=== PATIENT | male | born 1970 | race Caucasian/White ===

== ENCOUNTER 2025-07-28 14:09 | Outpatient (OUT) | payer BC, SELFPAY ==
--- NOTE | 2025-07-28 | CT_ITS ---
The [address] [address] Patient Name: ANGEL STOKES MRN: [id number] date: 1970 Sex: M Assigned Patient Location: CT Current Patient Location: CT Accession/Order Number: [id number] Exam Date: 07/28/2025 14:30 Report Date: 07/28/2025 20:55 At the request of: POORNIMA QUILES DO, MS Procedure: CT lung screening low-dose CT Chest lung screening without contrast TECHNIQUE: Axial imaging with 2-D reconstruction. The CT exam was performed using one or more the following dose reduction techniques: Automated exposure control, adjustment of the MA and/or Kv according to patient size, or use of the iterative reconstruction technique. History: 33 pack-year history COMPARISON: None THYROID: Unremarkable TRACHEA AND BRONCHI: Patent ESOPHAGUS: Unremarkable. HEART: Within normal limits PERICARDIAL EFFUSION: None CORONARY ARTERY CALCIFICATION: None MEDIASTINUM: No adenopathy. No pneumoperitoneum. No mediastinal hematoma. PULMONARY SOHEILA: No hilar mass or adenopathy is seen. THORACIC AORTA Unremarkable LUNG NODULE 7 mm right major fissure nodule seen with image 141 LUNGS: Mild atelectasis. PLEURAL EFFUSION: None PNEUMOTHORAX: No pneumothorax seen. CHEST WALL: No abnormality AXILLA:Unremarkable BONY STRUCTURES Intact UPPER ABDOMEN: Images of the upper abdomen are noncontributory. CT/CT lung screening low-dose IMPRESSION: 7 mm right major fissural nodule FINAL ASSESSMENT: Benign behavior Lung-RADS Version 1.0 Assessment Category: 2 REMARKS: Continued annual screening with LDCT in 12 months is recommended. Impression dictated by: Kike Hodges M.D. 07/28/2025 8:55 PM Dictation Location: [id number] Electronically authenticated by: [id number] Y Date: 07/28/2025 20:55
--- OUTSIDE RECORDS SUMMARY | 2025-07-28 14:17 | XMS_ITS | Clinical Summary ---
Author Organization [facility] Address [address] [facility] [place] [address] Care Team Providers Care Occupational Health Physician Name Role Phone Unavailable Primary Care Provider Unavailabl e Source Comments The following information is NOT included in Care Everywhere downloads:Psychiatric notes, ECG results, Cardiac Rehab notes, Pulmonary Function notes, data from SmartForms (includes but not limited toPregnancy data,audiograms, eye exams, pre-surgical evaluation notes, well-child exam data).[facility] Medications No known medications Social History Tobacco UseTypesPacks/DayYears UsedDateSmoking Tobacco: Never AssessedSex and Gender InformationValueDate RecordedSex Assigned at BirthNot on fileLegal Sex Male06/06/2012 12:41 PM ESTGender IdentityNot on fileSexual OrientationNot on file Plan of Treatment Health MaintenanceDue DateLast RhdqTlzrwmagCiptjkisujl1970HIV Test 1985Hepatitis C Bzvctjbq96/07/1988Tdap Nsbksoy9007/09/1988Hepatitis A (HAV) Vaccine (optional start 19+ years)1989Hepatitis B (HBV) Vaccine (1 of 3 - 19+ 3-dose series)1989Tetanus (Td or Tdap) Njxmvmb7407/09/1989Cholesterol 2005CRC Rhdnnriwt28/07/2015Cologuard (Stool DNA)2015FIT2015 Pneumococcal Vaccine(s) (50+ yrs) (1 of 1 - PCV)2020Shingles (RZV) Vaccine (1 of 2)2020COVID-19 Vaccine (1 - 2024-26 season)2025Influenza Vaccine (#1)2025 Insurance
--- OUTSIDE RECORDS SUMMARY | 2025-07-28 14:17 | XMS_ITS | Clinical Summary ---
[facility] Address [id number] [address] [place] [address] Care Team Providers Care Pot Filler Name Role Phone Unavailable Primary Care Provider Unavailabl e Social History Tobacco UseTypesPacks/DayYears UsedDateSmoking Tobacco: Never AssessedChildcare AnswerDate NxupfqpwZhajcovvoRzmyhbh64/12/2019EmploymentAnswerDate Recorded JlzdsiormdKmqfemj42/12/2019Sex and Gender InformationValueDate RecordedSex Assigned at BirthNot on fileLegal SwcSnxh6603/08/2015 11:58 AM EDTGender Identity Not on fileSexual OrientationNot on file Plan of Treatment Not on file Medical Devices Not on file
== END 2025-07-28 14:10 | disposition home or self-care (01) ==
LOC: CT 14:14
PROVIDERS: PCP Student in an Organized Health Care Education/Training Program; Visit Provider Student in an Organized Health Care Education/Training Program
DX: Z87.891 Personal history of nicotine dependence (principal)
CPT/HCPCS: 71271